=== PATIENT | female | born 1965 | race Caucasian/White ===

== ENCOUNTER 2018-08-29 10:42 | Day surgery (SDC) | payer BC ==
[~2018-08-29] VITALS: Ht 167.6 cm; Wt 77.3 kg
[2018-08-29 10:59] LABS: HEMATOCRIT 41.7 % (36.0-48.0); MCH 30.8 pg (26.0-34.0); MCHC 33.6 g/dL (31.0-37.0); MCV 91.6 fL (80.0-100.0); MEAN PLATELET VOLUME 9.8 fL (7.4-10.4); RBC 4.55 10x6/uL (4.00-5.40); RDW 12.9 % (11.5-14.5); WBC 6.4 10x3/uL (4.8-10.8)
[2018-08-29] MEDS ORDERED: RESTORIL15 MG PO (11:52)
[2018-08-29 11:59] VITALS: BP 116/67; Ht 167.6 cm; Wt 77.3 kg
--- NOTE | 2018-08-29 16:07 | NUR ---
1415 RECIEVED FULL LIQUID TRAY TOLERATED WELL NO PAIN AND PASSING GAS. MORE AWAKE. DR LARSEN IN ROOM TO TALK WITH PT AND . IV REMOVED
--- NOTE | 2018-08-29 16:08 | NUR ---
1500 PT DISCHARGED HOME AMBULATED WITH
--- NOTE | 2018-09-02 11:11 | OP ---
PATIENT NAME: PETER PHOENXI MEDICAL RECORD: [id number] :67 LOCATION:[facility] ADMISSION DATE: SURGEON: FERNANDO LARSEN MD DATE OF OPERATION: 08/29/2018 PROCEDURE: Colonoscopy with polypectomy. REFERRING PHYSICIAN: Dr. Davide Riddle. INDICATIONS: Ms. Phoenix is a delightful 53-year-old woman [employer], who presents for outpatient screening colonoscopy. She has had no symptoms of nausea, vomiting, melena, hematochezia, abdominal pain or abnormal weight loss. She presents for outpatient colonoscopy. PREMEDICATIONS: Total IV anesthesia (propofol 550 mg). INSTRUMENT: Olympus video colonoscope, pediatric. PROCEDURE AND FINDINGS: After receiving informed consent, Ms. Phoenix was placed in left lateral decubitus position and sedated as per anesthesia. After achieving an adequate level of sedation, digital rectal exam was performed that showed no external hemorrhoidal tags, fissures or fistulas, normal sphincter tone, no palpable rectal masses. The colonoscope was introduced per rectally and advanced to the cecum without difficulty. The cecum, IC valve, and appendiceal orifice were identified and appeared normal. The terminal ileum was intubated and the distal small bowel mucosa was without erythema or ulcers. As the colonoscope was withdrawn, careful inspection was made of the baker of the colon. Overall mucosa had normal vascular and fold pattern. In the proximal ascending colon, along the fold, was a 0.75 cm-1 cm polyp, sessile, removed with hot biopsy forceps technique. In the descending colon was a 0.75 cm sessile polyp removed with hot biopsy forceps technique. Retroflexion in rectum showed no internal hemorrhoids. A good prep was present. Ms. Phoenix tolerated the procedure well, no immediate complications. Withdrawal time was 12 minutes. ASSESSMENT: 1. Proximal ascending colon polyp status post polypectomy. 2. Descending colon polyp status post polypectomy. 3. Normal colonic mucosa throughout. RECOMMENDATIONS: 1. Follow up histopathology. 2. Avoid aspirin, nonsteroidal anti-inflammatory drugs and VALLE-2 inhibitors for 14 days post polypectomy. 3. High fiber diet. 4. Surveillance colonoscopy in 3 years. TRANSINT:[id number] Voice Confirmation ID: [id number] DOCUMENT ID: [id number] OPERATIVE REPORT [id number] PETER PHOENIX FERNANDO LARSEN MD at 1111 CC: IRLANDA RIDDLE [id number] DICTATION DATE: 08/29/18 1322 MEDICINE TECHNOLOGIST: 08/29/18 1415 [facility] [place] 08/29/18 [id number] [place] [address]
== END 2018-08-29 15:00 | disposition home or self-care (01) ==
LOC: D.OPS 10:42
PROVIDERS: Anesthesiology; ATTEND Internal Medicine Gastroenterology
DX: Z12.11 Encounter for screening for malignant neoplasm of colon (principal); D12.2 Benign neoplasm of ascending colon; D12.4 Benign neoplasm of descending colon; Z01.812 Encounter for preprocedural laboratory examination

== ENCOUNTER 2018-09-04 19:36 | Inpatient (IN) | payer BC ==
[~2018-09-04] VITALS: Ht 167.6 cm; Wt 76.8 kg
[2018-09-04] VITALS (8 sets, daily range): BP systolic 83–106; BP diastolic 49–65; BMI 27.2
[~2018-09-04 19:36] MED LIST: RESTORIL15 MG PO
--- NOTE | 2018-09-04 19:50 | NUR ---
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 it ws stated she had a seizure but unknown how log it last. pt jsut stated she felt funny and became really dizzy and slid to the floor at the nurse station. pt had a coloscopy down 1 week ago and had several polps removed. pt stated she started passing bright red blood in stool. pt had 1 large straight blood bm upon arrival to ed. pt very pale at this time. 18 g sited to RAC, 20 g to left wrist area. BLOOD DRAWN AND SENT TO LAB FOR TYPE AND CROSS. emergency blood given to [facility] O (-). 15 MIN CHECK. NO S/S OF TRANSFUSION REACTION NOTED.
[2018-09-04 20:02] LABS: HEMATOCRIT 34.1 % (36.0-48.0); HEMOGLOBIN 11.5 g/dL (12-16); MCH 30.4 pg (26.0-34.0); MCHC 33.7 g/dL (31.0-37.0); MCV 90.2 fL (80.0-100.0); MEAN PLATELET VOLUME 9.7 fL (7.4-10.4); PLATELET COUNT 217 10x3/uL (130-400); RBC 3.78 10x6/uL (4.00-5.40); RDW 12.8 % (11.5-14.5); WBC 10.5 10x3/uL (4.8-10.8)
[2018-09-04 20:19] LABS: INR 0.93 (0.85-1.17)
[2018-09-04 20:31] LABS: ALBUMIN 3.5 g/dL (3.4-5.0); ANION GAP 16.6 mmol/L (8-16); BILIRUBIN - TOTAL 0.14 mg/dL (0.2-1.3); CALCIUM 8.4 mg/dL (8.5-10.1); CARBON DIOXIDE 22.7 mmol/L (21.0-32.0); CREATININE - SERUM 0.9 mg/dL (0.6-1.3); POTASSIUM - SERUM 3.3 mmol/L (3.5-5.1)
[2018-09-04 20:53] LABS: EOSINOPHILS 2 % (0-7); LYMPHOCYTES 60 % (15-50); MONOCYTES 3 % (2-11); NEUTROPHILS 35 % (40-80); PLATELET ESTIMATE NORMAL
--- NOTE | 2018-09-04 21:50 | NUR ---
FIRST UNIT FFP INFUSION BEGAN. NO DISTRESS OR S/S OF REACTION NOTED. PT DENIES PAIN OR NEEDS AT THIS TIME.
--- NOTE | 2018-09-04 23:34 | NUR ---
LR, FLAGGYL, PROTONIX DRIP STOPPED AT 2334 WHEN PT ADMITTED TO ROOM. 2311 REPORT GIVEN TO KADIE COMER IN CVICU
--- NOTE | 2018-09-04 23:35 | NUR ---
PT ADMITTED TO ROOM CV5 FROM ER WITH DX GI BLEED. TRANSPORTED IN W/C PER HOSPITAL STAFF, SPOUSE WITH PT. PT CONNECTED TO STANDARD CVICU MONITORS WITH ALL ALARMS SET, VERIFIED AND AUDIBLE AT NURSES STATION. PT GIVEN CALL LIGHT AND ADMISSION ASSESSMENT/HISTORY/AND MEDICATION PROFILE COMPLETED. BED IN LOW POSITION PT ADVISED TO USE CALL LIGHT TO REQUEST ASSISTANCE.
[2018-09-05] VITALS (27 sets, daily range): BP systolic 89–115; BP diastolic 52–70; Ht 167.6 cm; Wt 76.8 kg
--- NOTE | 2018-09-05 01:00 | NUR ---
PT AWAKE WATCHING TELEVISION. DENIES NEEDS
--- NOTE | 2018-09-05 03:00 | NUR ---
PT REMAINS HYPOTENSIVE BUT ASYMPTOMATIC AT THIS TIME. HAS BEEN DOZING OFF AND ON. NO ACUTE DISTRESS AT THIS TIME
[2018-09-05 04:54] LABS: BASOPHILS 0.3 % (0-2); EOSINOPHILS 0.4 % (0-7); HEMATOCRIT 34.6 % (36.0-48.0); HEMOGLOBIN 11.8 g/dL (12-16); IMMATURE GRANULOCYTES 0.1 % (0-5); LYMPHOCYTES 25.6 % (15-50); MCH 30.5 pg (26.0-34.0); MCHC 34.1 g/dL (31.0-37.0); MCV 89.4 fL (80.0-100.0); MEAN PLATELET VOLUME 10.1 fL (7.4-10.4); NEUTROPHILS 66.6 % (40-80); RBC 3.87 10x6/uL (4.00-5.40); RDW 13.4 % (11.5-14.5)
[2018-09-05 04:56] LABS: PLATELET COUNT 169 10x3/uL (130-400); WBC 7.6 10x3/uL (4.8-10.8)
[2018-09-05 05:13] LABS: ALBUMIN 3.2 g/dL (3.4-5.0); ALKALINE PHOSPHATASE 56 U/L (46-116); ALT (SGPT) 20 U/L (10-68); BILIRUBIN - TOTAL 0.58 mg/dL (0.2-1.3); CALCIUM 8.1 mg/dL (8.5-10.1); CARBON DIOXIDE 24.4 mmol/L (21.0-32.0); CHLORIDE - SERUM 108 mmol/L (98-107); GLUCOSE 100 mg/dL (74-106); PROTEIN - SERUM 6.5 g/dL (6.4-8.2); SODIUM 142 mmol/L (136-145)
[2018-09-05 05:23] LABS: CALC OSMOLALITY 283 mosm/kg (275-300); CREATININE - SERUM 0.6 mg/dL (0.6-1.3); POTASSIUM - SERUM 3.8 mmol/L (3.5-5.1); UREA NITROGEN 14 mg/dL (7-18); eGFR NON AFRICAN AMERICAN > 90 mL/min (90-120)
--- NOTE | 2018-09-05 06:18 | NUR ---
CALL RECEIVED FROM DR. LARSEN UPDATE GIVEN. ORDERS RECEIVED AND DISCUSSED WITH PHARMACY. PT HAS HAD NO BLEEDING THIS SHIFT
--- NOTE | 2018-09-05 06:45 | NUR ---
DR. HERNANDEZ'S RN FIRST ASSISTANT HERE TO SEE PT
--- NOTE | 2018-09-05 07:37 | NUR ---
DR. LARSEN AT BEDSIDE
[2018-09-05 10:07] LABS: HEMATOCRIT 34.4 % (36.0-48.0); HEMOGLOBIN 11.8 g/dL (12-16)
[2018-09-05 14:25] LABS: HEMATOCRIT 33.9 % (36.0-48.0); HEMOGLOBIN 11.7 g/dL (12-16)
[2018-09-05 19:27] LABS: HEMATOCRIT 35.2 % (36.0-48.0); HEMOGLOBIN 12.2 g/dL (12-16)
[2018-09-05 20:18] LABS: HEMATOCRIT 35.4 % (36.0-48.0); HEMOGLOBIN 12.1 g/dL (12-16)
[2018-09-06] VITALS (24 sets, daily range): BP systolic 86–121; BP diastolic 37–71
[2018-09-06 02:38] LABS: HEMOGLOBIN 11.3 g/dL (12-16)
[2018-09-06 06:31] LABS: BASOPHILS 0.3 % (0-2); EOSINOPHILS 3.2 % (0-7); HEMATOCRIT 35.6 % (36.0-48.0); HEMOGLOBIN 11.9 g/dL (12-16); LYMPHOCYTES 38.4 % (15-50); MCH 30.1 pg (26.0-34.0); MCHC 33.4 g/dL (31.0-37.0); MCV 90.1 fL (80.0-100.0); MEAN PLATELET VOLUME 9.9 fL (7.4-10.4); MONOCYTES 7.5 % (2-11); NEUTROPHILS 50.6 % (40-80); PLATELET COUNT 167 10x3/uL (130-400); RBC 3.95 10x6/uL (4.00-5.40); RDW 13.4 % (11.5-14.5); WBC 6.5 10x3/uL (4.8-10.8)
[2018-09-06 06:42] LABS: CALC OSMOLALITY 281 mosm/kg (275-300); CALCIUM 8.4 mg/dL (8.5-10.1); CARBON DIOXIDE 23.1 mmol/L (21.0-32.0); CHLORIDE - SERUM 109 mmol/L (98-107); CREATININE - SERUM 0.7 mg/dL (0.6-1.3); GLUCOSE 98 mg/dL (74-106); POTASSIUM - SERUM 3.8 mmol/L (3.5-5.1); SODIUM 142 mmol/L (136-145); UREA NITROGEN 9 mg/dL (7-18); eGFR NON AFRICAN AMERICAN > 90 mL/min (90-120)
[2018-09-06 15:01] LABS: HEMATOCRIT 36.2 % (36.0-48.0); HEMOGLOBIN 12.4 g/dL (12-16)
--- NOTE | 2018-09-06 19:00 | NUR ---
REPORT RECIEVED, SHIFT ASSESSMENT COMPLETE, PLEASE SEE FLOW SHEETS FOR DETAILS. VSS. BED LOW AND LOCKED, CALL LIGHT IN REACH. PROVIDED FOR NEEDS. WILL CONTINUE PLAN OF CARE.
--- NOTE | 2018-09-06 19:26 | MORECARE ---
CASE MANAGEMENT DISCHARGE SUMMARY PATIENT: PETER PHOENIX UNIT: [id number] ADM DATE: 09/04/18 AGE: 53 : 67 SEX: F ROOM/BED: [facility] AUTHOR: PHUC RUIZ PHYSICIAN: REFERRING PHYSICIAN: KAMRYN HERNANDEZ MD DATE OF SERVICE: 09/06/18 Discharge Plan Patient Name: PETER PHOENIX Facility: [facility]:[place] : 1965 Planned Disposition: Home Anticipated Discharge Date: Discharge Date: Expected LOS: Initial Reviewer: [email or web address] Initial Review Date: 09/05/2018 Generated: 09/06/18 8:25 pm Comments DCP- Discharge Planning Updated by [id number]: Kacey Ludwig on 09/06/18 6:[address] Patient Name: PETER PHOENIX Admission Status: ER Accout number: [id number] Admission Date: 09-04-2018 : 1965 Admission Diagnosis:ACUTE POSTHEMORRHAGIC ANEMIA Attending: KAMRYN HERNANDEZ Current LOS: 2 Anticipated DC Date: Planned Disposition: Home Primary Insurance: [employer] [facility] Discharge Planning Comments: CM met with patient at bedside. Patient lives at home with her and plans on returning there upon discharge. Patient denies any discharge needs at this time. CM will continue to follow and assist as needed with discharge planning / needs. Payroll Services Analyst: Kacey Ludwig DCPIA - Discharge Planning Initial Assessment Updated by [email or web address]: Kacey Ludwig on 09/06/18 7:24 pm * Is the patient Alert and Oriented? Yes * How many steps to enter\exit or inside your home? * PCP matt * Pharmacy [facility] * Preadmission Environment Home with Family * ADLs Independent * Equipment None * Verbal permission to speak to the caregivers and representatives has been obtained from the patient. Yes * Community resources currently utilized None * Additional services required to return to the preadmission environment? No * Can the patient safely return to the preadmission environment? Yes * Has this patient been hospitalized within the prior 30 days at any hospital? No Patient Name: PETER PHOENIX Page [phone] at 1926 All edits/amendments must be made on the electronic document DICTATION DATE: 09/06/181924 HAND BOBBIN CLEANER: WESTLEY 09/06/181924 RPT#: [id number] DC DATE: STATUS: ADM IN [facility] [address] [place] [address] END OF REPORT
--- NOTE | 2018-09-06 20:29 | NUR ---
UP TO COMMODE. VOID NOTED. VSS. WILL CONTINUE PLAN OF CARE.
--- NOTE | 2018-09-06 21:28 | NUR ---
RIGHT AC PIV D/C'D WILL NOT FLUSH. CONFIRMED PATENCY OF LEFT WRIST PIV, FLUSHED WELL. VSS. BED LOW AND LOCKED. PROVIDED FOR NEEDS. WILL CONTINUE PLAN OF CARE.
--- NOTE | 2018-09-06 22:54 | NUR ---
REASSESSMENT COMPLETE, PLEASE SEE FLOW SHEETS FOR DETAILS. REPORTS BM. DENIES PAIN/NEEDS. VSS. BED LOW AND LOCKED, CALL LIGHT IN REACH. WILL CONTINUE PLAN OF CARE.
[2018-09-06 22:59] LABS: APPEARANCE CLEAR (CLEAR); BILIRUBIN NEGATIVE (NEGATIVE); COLOR STRAW (YELLOW); GLUCOSE NEGATIVE (NEGATIVE); KETONE NEGATIVE (NEGATIVE); NITRITE NEGATIVE (NEGATIVE); PROTEIN NEGATIVE (NEGATIVE); SPECIFIC GRAVITY 1.005 (1.005-1.020); UROBILINOGEN NORMAL (NORMAL)
[2018-09-06 23:00] LABS: WHITE CELLS - URINE 0-5 /hpf (0-5)
[2018-09-06 23:01] LABS: BACTERIA FEW /hpf (NONE SEEN); RED CELLS - URINE 0-5 /hpf (0-5)
[2018-09-07] VITALS (15 sets, daily range): BP systolic 82–120; BP diastolic 42–72
--- NOTE | 2018-09-07 01:00 | NUR ---
SLEEPING, VSS, BED LOW AND LOCKED, CALL LIGHT IN REACH. WILL CONTINUE PLAN OF CARE.
[2018-09-07 02:31] LABS: HEMATOCRIT 34.6 % (36.0-48.0); HEMOGLOBIN 11.7 g/dL (12-16)
--- NOTE | 2018-09-07 02:52 | NUR ---
REASSESSMENT DONE SEE FLOW SHEET VSS NO SIGNS OF ACUTE DISTRESS NOTED WILL CONTINUE TO MONITOR
[2018-09-07 07:41] LABS: BASOPHILS 0.4 % (0-2); EOSINOPHILS 2.4 % (0-7); HEMATOCRIT 34.9 % (36.0-48.0); HEMOGLOBIN 11.9 g/dL (12-16); IMMATURE GRANULOCYTES 0.3 % (0-5); LYMPHOCYTES 27.5 % (15-50); MCH 30.7 pg (26.0-34.0); MCHC 34.1 g/dL (31.0-37.0); MCV 90.2 fL (80.0-100.0); MEAN PLATELET VOLUME 9.8 fL (7.4-10.4); MONOCYTES 6.5 % (2-11); NEUTROPHILS 62.9 % (40-80); PLATELET COUNT 179 10x3/uL (130-400); RBC 3.87 10x6/uL (4.00-5.40); RDW 13.6 % (11.5-14.5); WBC 7.4 10x3/uL (4.8-10.8)
[2018-09-07 07:41] LABS: HEMATOCRIT 34.5 % (36.0-48.0); HEMOGLOBIN 11.9 g/dL (12-16)
[2018-09-07 07:47] LABS: CALC OSMOLALITY 284 mosm/kg (275-300); CALCIUM 8.5 mg/dL (8.5-10.1); CARBON DIOXIDE 26.8 mmol/L (21.0-32.0); CHLORIDE - SERUM 109 mmol/L (98-107); CREATININE - SERUM 0.7 mg/dL (0.6-1.3); GLUCOSE 105 mg/dL (74-106); POTASSIUM - SERUM 3.9 mmol/L (3.5-5.1); SODIUM 144 mmol/L (136-145); UREA NITROGEN 7 mg/dL (7-18); eGFR NON AFRICAN AMERICAN > 90 mL/min (90-120)
--- NOTE | 2018-09-07 10:52 | NUR ---
5266 DR CANELA AT BEDSIDE-SPOKE TO PT REARDING STATUS AND PLAN OF CARE FOR SUNDAY
--- NOTE | 2018-09-07 12:12 | NUR ---
DR HERNANDEZ AT BEDSIDE-L IV D/C'D-TIP INTACT SLIGHT REDNESS NOTED AT INSERTION SITE
[2018-09-07 15:16] LABS: HEMATOCRIT 35.3 % (36.0-48.0); HEMOGLOBIN 12.1 g/dL (12-16)
--- NOTE | 2018-09-07 16:01 | NUR ---
1500-LAB DRAWN ORDERED-PT AMBULATING IN [id number]AMP[facility]- 1530-HGB AND HCT CALLED TO DR CANELA -CONFIRMED OK TO DISCHARGE HOME ORDERED BY DR HERNANDEZ-DIRECTED FOLLOW UP IN 2WKS WITH DR LARSEN-PO NEXIUM-PAPER PRESCRIPTION GIVEN 1600-PT DISCHARGED ACCOMPANIED BY
--- NOTE | 2018-09-09 17:12 | MORECARE ---
CASE MANAGEMENT DISCHARGE SUMMARY PATIENT: PETER PHOENIX UNIT: [id number] ADM DATE: 09/04/18 AGE: 53 : 67 SEX: F ROOM/BED: [facility] AUTHOR: JOSEPH,DOC PHYSICIAN: REFERRING PHYSICIAN: KAMRYN HERNANDEZ MD DATE OF SERVICE: 09/09/18 Discharge Plan Patient Name: PETER PHOENIX Facility: [facility]:[place] : 1965 Planned Disposition: Home Anticipated Discharge Date: Discharge Date: 09/07/2018 Expected LOS: Initial Reviewer: [email or web address] Initial Review Date: 09/05/2018 Generated: 09/09/18 6:12 pm Comments DCP- Discharge Planning Updated by [email or web address]: Kacey Ludwig on 09/06/18 6:[address] Patient Name: PETER PHOENIX Admission Status: ER Accout number: [id number] Admission Date: 09-04-2018 : 1965 Admission Diagnosis:ACUTE POSTHEMORRHAGIC ANEMIA Attending: KAMRYN HERNANDEZ Current LOS: 2 Anticipated DC Date: Planned Disposition: Home Primary Insurance: [facility] Discharge Planning Comments: CM met with patient at bedside. Patient lives at home with her and plans on returning there upon discharge. Patient denies any discharge needs at this time. CM will continue to follow and assist as needed with discharge planning / needs. Librarian Specialist: Kacey Ludwig DCPIA - Discharge Planning Initial Assessment Updated by [email or web address]: Kacey Ludwig on 09/06/18 7:24 pm * Is the patient Alert and Oriented? Yes * How many steps to enter\exit or inside your home? * PCP matt * Pharmacy [facility] * Preadmission Environment Home with Family * ADLs Independent * Equipment None * Verbal permission to speak to the caregivers and representatives has been obtained from the patient. Yes * Community resources currently utilized None * Additional services required to return to the preadmission environment? No * Can the patient safely return to the preadmission environment? Yes * Has this patient been hospitalized within the prior 30 days at any hospital? No Last DP export: 09/06/18 6:26 p Patient Name: PETER PHOENIX Page [phone] at 1712 All edits/amendments must be made on the electronic document DICTATION DATE: 09/09/181711 FIELD ARTILLERY CREWMEMBER: WESTLEY 09/09/181711 RPT#: [id number] DC DATE:09/07/18 STATUS: DIS IN [facility] [address] [place] [address] END OF REPORT
== END 2018-09-07 16:05 | disposition home or self-care (01) | DRG 919 ==
LOC: D.ER 19:36 → D.CVICU 22:38
PROVIDERS: Family Medicine; Internal Medicine Gastroenterology; ADMIT Internal Medicine Nephrology; ATTEND Internal Medicine Nephrology
DX: K91.840 Postprocedural hemorrhage of a digestive system organ or structure following a digestive system procedure (principal); R57.1 Hypovolemic shock; D62 Acute posthemorrhagic anemia; N17.9 Acute kidney failure, unspecified; E87.6 Hypokalemia; Y84.8 Other medical procedures as the cause of abnormal reaction of the patient, or of later complication, without mention of misadventure at the time of the procedure